=== PATIENT | female | born 1965 | race African-American/Black ===

== ENCOUNTER 2020-12-01 13:14 | Inpatient (IN) | payer OTHER ==
[~2020-12-01] VITALS: Ht 167.6 cm; Wt 66.7 kg
[2020-12-01 13:17] VITALS: BP 123/42
[2020-12-01 13:39] LABS: RBC 2.02 mil/uL (4.20-5.00); WBC 5.2 thou/uL (4.0-11.0)
[2020-12-01 13:42] LABS: MCH 29.9 pg (26.0-34.0); MCHC 35.2 g/dL (28.0-37.0); MCV 84.8 fL (80.0-100.0); RDW 15.1 % (10.5-14.5)
[2020-12-01 13:45] LABS: HEMATOCRIT 17.1 % (37.0-47.0)
[2020-12-01 13:48] LABS: ANION GAP 9 mmol/L (7-16); BUN 18 mg/dL (7-18); CHLORIDE 102 mmol/L (98-107); CO2 27 mmol/L (21-32); GLUCOSE 114 mg/dL (74-106); POTASSIUM 3.7 mmol/L (3.5-5.1); SODIUM 138 mmol/L (136-145)
[2020-12-01 13:58] LABS: ALBUMIN 2.9 g/dL (3.4-5.0); SGOT 15 U/L (15-37); SGPT 18 U/L (30-65); TOTAL BILIRUBIN 0.2 mg/dL (0.2-1.0); TOTAL PROTEIN 5.5 g/dL (6.4-8.2); TROPONIN-I <0.06 ng/mL (<0.06)
[2020-12-01 14:16] LABS: APTT 20.3 Seconds (24.5-32.8); D-DIMER 0.19 ug/mLFEU (0.19-0.50); INR 0.97; PROTIME 10.6 Seconds (10.5-12.1)
[2020-12-01 16:40] VITALS: BP 91/49
[2020-12-01 17:49] VITALS: BP 113/64; BP 99/43
--- NOTE | 2020-12-01 18:08 | NUR ---
PATIENT ADMITTED TO UNIT AT THIS TIME. SHE IS ALERT ORINETED X4. PLEASANT WITH CARES. RESPIRATIONS ARE EVEN NON LABORED. ANEMIC AND BLOOD INFUSING AT THIS TIME .
[2020-12-01 18:55] VITALS: BP 116/44
[2020-12-02 04:09] VITALS: BP 80/39
--- NOTE | 2020-12-02 05:12 | NUR ---
PROGRESS PT A/O X4, LUNGS CLEAR, VSS BP SLIGHT SOFT BUT PT DENIES DIZZINESS AT THIS TIME. 1 UNIT PRBC'S INFUSED ORDERED HGB REPEATED 1 HOUR AFTER AND UP TO 7.6. PROTONIX DRIP COMPLETED. TYLENOL GIVEN FOR HEADACHE AND BENEDRYL GIVEN SLEEP AIDE PT SLEPT REMAINDER OF SHIFT UNTIL AM VITALS DENIES PAIN AT THIS TIME, GI CONSULT PLANNED FOR THE DAY.
[2020-12-02 05:50] LABS: HEMATOCRIT 20.7 % (37.0-47.0); HEMOGLOBIN 7.3 gm/dL (12.0-15.0); MCH 30.4 pg (26.0-34.0); MCHC 35.2 g/dL (28.0-37.0); MCV 86.4 fL (80.0-100.0); RBC 2.4 mil/uL (4.20-5.00); RDW 15.4 % (10.5-14.5); WBC 4.6 thou/uL (4.0-11.0)
[2020-12-02 06:02] LABS: CALCIUM 8.1 mg/dL (8.5-10.1); CREATININE 0.8 mg/dL (0.6-1.0); POTASSIUM 3.6 mmol/L (3.5-5.1)
[2020-12-02 07:11] VITALS: BP 86/39
--- NOTE | 2020-12-02 08:46 | EKG ---
[place] [address] [facility] [place] [address] ELECTROCARDIOGRAM REPORT Name: ELIOT TAPIA Room #: 357-P ADM IN M.R.#: [id number] Admission: 12/01/20 Attend Phys: Gian Kilgore MD Discharge: Date of : 67 Report #: [id number] [facility] ED Test Date: 2020-12-01 Test Time: 13:20:05 Pat Name: ELIOT TAPIA Department: Room: 357 Gender: F Retail Department Manager: : 1965 Requested By: Cora Gordon Order Number: [id number] MD: Serge Borden Measurements Intervals [place] Rate: 95 P: 29 NH: 181 QRS: 45 QRSD: 79 T: 22 QT: 350 QTc: 440 Interpretive Statements Sinus rhythm Borderline T abnormalities Baseline wander in lead(s) V3,V5 No previous ECG available for comparison Electronically Signed On 12-02-2020 8:46:33 CDT by Serge Borden [email or web address] <ELECTRONICALLY SIGNED> By: Serge Borden MD, [facility] 12/02/20 0846 1320 1320 Serge Borden MD, FACC /EPI
--- NOTE | 2020-12-02 11:25 | NUR ---
ASSESSMENT: CM REVIEWED CHART AND SPOKE WITH PATIENT. PT IS ALERT AND ORIENTED X4. PT WAS ADMITTED GENERALIZED WEAKNESS AND HEMOGLOB OF 6.0. PATIENT WAS TRANSFUSED WITH ONE UNIT. GI CONSULT WAS PLACED AND PT IS TO GET AN EGD TODAY. HEMOGLOBIN IS NOW 7.3. PT RPEORTS THAT SHE LIVES IN AN APT ALONE. PT REPORTS HAVING ABOUT 10 STEPS WITH [employer] TO GET DOWN INTO HER APT. PT REPORTS SHE IS NORMALLY VERY INDEPENDENT WITH ADLS AND AMBULATION AND HAS NO DME. PT IS SHOWING PATIENT PAY BUT REPORTS HAVING INSURANCE THROUGH HER EMPLOYER [employer]. CM NOTIFIED UR RN. PT STATES SHE WILL CALL HER EMPLOYER AND TRY AND GET MORE INFO. PT STATES SHE HAS NO HX OF HH OR SNF. PT REPORTS SHE DOES NOT CURRENTLY HAVE A PCP AND REPORTS SHE NEVER GETS SICK AND HAS NOT HAD TO GET TREATMENT IN A LONG TIME. CM DISCUSSED ONCE SHE IS ABLE TO FIND OUT HER INSURANCE SHE CAN CONTACT THE NUMBER OF WHO IS IN NETWORK. CM ALSO PROVIDED PATIENT WITH HEALTH RESOURCE PACKET/SAFETY NET CLINICS AND FOLLOW UP LOCATIONS. PT REPORTS SHE HAS NO FURTHER NEEDS FROM CM AT THIS TIME. CM WILL CONTINUE TO FOLLOW TO ASSIST NEEDED.
[2020-12-02 12:12] VITALS: BP 94/52; BP 97/64; BP 99/46
[2020-12-02 15:30] VITALS: BP 90/65
--- NOTE | 2020-12-02 17:02 | NUR ---
ASSUMED PATIENT CARE AT 0700. A/O X4. NO N/V. NO BLEEDING BM. PATIENT RECEIVED 2ND UNIT RBC THAT FINISHED AT GI LAB. PATIENT BACK TO UNIT AT 1530. WILL HAVE COLONOSCOPY TOMORROW.
[2020-12-02 20:07] VITALS: BP 95/48
[2020-12-03 04:30] VITALS: BP 96/50
--- NOTE | 2020-12-03 05:05 | NUR ---
Completed bowel prep lats night and pt. stated last bm is clear. No bleeding noted. C/O headache , tylenol given with some relief.She also requested for sleep med , benadryl given with good result. No nausea or vomiting. Kept NPO for colonoscopy today.
[2020-12-03 06:09] LABS: HEMATOCRIT 27.5 % (37.0-47.0); MCH 31.4 pg (26.0-34.0); MCHC 36.1 g/dL (28.0-37.0); MCV 86.9 fL (80.0-100.0); RBC 3.17 mil/uL (4.20-5.00); RDW 15.7 % (10.5-14.5); WBC 3.7 thou/uL (4.0-11.0)
[2020-12-03 06:22] LABS: HEMOGLOBIN 9.9 gm/dL (12.0-15.0)
[2020-12-03 07:18] VITALS: BP 111/52
--- NOTE | 2020-12-03 13:18 | NUR ---
DISCHARGE NOTE: JESUS reviewed chart and spoke with nursing and attending physician. Pt had EGD yesterday and will have colonoscopy today. Pt may discharge home following GI procedure. JESUS met with pt at bedside to discuss discharge plan. Pt states she drove herself to the hospital and will plan to drive home when discharged. Pt reports she contacted her employer, who states that pt's insurance will not be active until January. Pt states she will pay or make payment plans regarding cost of hospitalization. SW notified [employer], that pt does not have active insurance. [employer] to screen pt for Medicaid. Plan is for pt to discharge home when medically stable. No SW discharge needs identified at this time. SW is available to assist should needs arise.
[2020-12-03] MEDS ORDERED: PROTONIX 20 MG20 M1 PO (15:49)
[2020-12-03 17:05] VITALS: BP 111/52
--- NOTE | 2020-12-03 17:30 | NUR ---
PATIENT COMPLETED COLONOSCOPY, SEE PHYSICIAN REPORTS. GI IS OK WITH DC TO HOME, VERIFIED THIS WITH ATTENDING PHYSICIAN. ORDERS TO DC TO HOME. PATIENT GIVEN DISCHARGE EDUCATION, IV REMOVED WITHOUT COMPLICATION, VSS, AND TELE DC'D. PATIENT WAS ABLE TO AMBULATE TO PRIVATE CAR AND WAS A/O X4 WITH NO C/O PAIN, SHORTNESS OF BREATH OR BLEEDING UPON DC.
--- NOTE | 2020-12-04 08:19 | P ---
[facility] [place] [address] [place] [address] PROCEDURE REPORT Name: ELIOT TAPIA Room #: 357-P [facility] IN M.R.#: [id number] Admission: 12/01/20 Attend Phys: Gian Kilgore MD Discharge: 12/03/20 Date of : 67 Report #: [id number] THIS REPORT FOR: cc: HAMIDA - No family physician/PCP FAM - No family physician/PCP Regan Brothers MD ~ DOC #: [id number] cc: MD Regan Pichardo MD DATE OF SERVICE: 12/03/2020 PROCEDURE PERFORMED: Colonoscopy with biopsies. HISTORY OF PRESENT ILLNESS: The patient is a 55-year-old female with recent melanotic type stools as well as some nausea and vomiting. Admit hemoglobin was 6.0. She has been transfused 2 units of packed cells. Hemoglobin now is 9.9. Stool was Hemoccult positive x1 on . Last colonoscopy was in 2005 reportedly negative. I performed an upper endoscopy on the patient yesterday, which was normal. There was no evidence of bleeding. Therefore, plan is for colonoscopy today. DESCRIPTION OF PROCEDURE: The risks and benefits of the procedure were explained to the patient, those risks including but not limited to bleeding, perforation and the risk of sedation. She understood these risks and gave informed consent. Sedation was given using propofol per anesthesia. Next, a digital rectal exam was initially performed, which was normal other than small external hemorrhoid. Next, using a standard Olympus colonoscope, the scope was placed in the patient's anus and advanced under direct vision to the cecum. The overall prep was good. The cecum and ileocecal valve were normal in appearance. Terminal ileum was intubated and normal in appearance. The ascending, transverse, and descending colon were normal. In the sigmoid colon, two 3 mm sessile polyps are noted, both removed with cold forceps, otherwise normal. The rectal mucosa was normal. On retroflexion, no abnormalities were noted. The scope was then withdrawn and the procedure terminated. The patient tolerated the procedure well. IMPRESSION: 1. Two small sigmoid colon polyps. 2. External hemorrhoid. 3. Otherwise, normal colonoscopy. There was no evidence of bleeding throughout the exam today. RECOMMENDATIONS: 1. Await biopsy results. 2. If polyps are hyperplastic, repeat in 10 years; if adenomatous polyp, repeat [address] [address] PROCEDURE REPORT Name: ELIOT TAPIA Room #: 357-P DIS IN M.R.#: [id number] Admission: 12/01/20 Attend Phys: Gian Kilgore MD Discharge: 12/03/20 Date of : 67 Report #: [id number] in 5 years. 3. Due to the patient's anemia, heme-positive stool, no stigmata of bleeding were noted on EGD or colonoscopy today, I would recommend proceeding with an M2 capsule of her small bowel as an outpatient in the near future. Thank you for allowing me to participate in her care. Regan Brothers MD [facility] <ELECTRONICALLY SIGNED> By: Regan Brothers MD 12/04/20 0819 1206 2340 Regan Brothers MD /nt
--- NOTE | 2020-12-04 08:19 | P ---
[facility] [place] [place] [address] PROCEDURE REPORT Name: KARMEN TAPIALINE Room #: 357-P [facility] IN M.R.#: [id number] Admission: 12/01/20 Attend Phys: Gian Kilgore MD Discharge: 12/03/20 Date of : 67 Report #: [id number] THIS REPORT FOR: cc: FAM - No family physician/PCP FAM - No family physician/PCP Regan Brothers MD ~ DOC #: [id number] Regan Brothers MD ADDENDUM IMPRESSION: External hemorrhoid versus condyloma versus skin tag. I discussed this finding with the patient. I would recommend her seeing Dr. Brittani Toth with Colorectal Surgery for possible further treatment or excision at some point as this is bothersome to the patient at times. Regan Brothers MD [facility] <ELECTRONICALLY SIGNED> By: Regan Brothers MD 12/04/20 0819 1211 2329 Regan Brothers MD /nt
--- NOTE | 2020-12-04 08:19 | P ---
[facility] [place] [address] PROCEDURE REPORT Name: ELIOT TAPIA Room #: 357-[facility] IN M.R.#: [id number] Admission: 12/01/20 Attend Phys: Gian Kilgore MD Discharge: 12/03/20 Date of : 67 Report #: [id number] THIS REPORT FOR: cc: HAMIDA - No family physician/PCP FAM - No family physician/PCP Regan Brothers MD ~ DOC #: [id number] cc: MD Regan Pichardo MD DATE OF SERVICE: 12/01/2020 PROCEDURE PERFORMED: Upper endoscopy. HISTORY OF PRESENT ILLNESS: The patient is a 55-year-old female who has recent chest discomfort, anemia, feeling weak in general, intermittent nausea and vomiting at times. No acid reflux, reported dark stools for the last 2-3 days. Admit hemoglobin was 6.0. She has had a previous hysterectomy. She underwent a colonoscopy in 2005 apparently prior to a partial hysterectomy for ovarian tumor. Colonoscopy at that time was reportedly normal. She has been taking Aleve on a regular basis. Plan is for EGD. DESCRIPTION OF PROCEDURE: The risks and benefits of the procedure were explained to the patient, those risks including but not limited to bleeding, perforation and the risk of sedation. She understood these risks and gave informed consent. Sedation was given using propofol per anesthesia. Next, using a standard Olympus upper endoscope, the scope was placed in the patient's mouth and advanced under direct vision through the esophagus, stomach and into the second portion of the duodenum. Esophagus was normal throughout. The GE junction was normal. Overall, the gastric mucosa was normal. No evidence of ulcerations or erosions. No evidence of bleeding throughout the exam today. The pylorus was normal and patent. The duodenal bulb, first and second portion were all normal. At this point, the scope was then withdrawn and the procedure terminated. The patient tolerated the procedure well. IMPRESSION: Normal upper endoscopy. RECOMMENDATIONS: We will discuss options with the patient, would recommend proceeding with a colonoscopy next for further evaluation of anemia and heme-positive stools. Thank you for allowing me to participate in her care. Regan Brothers MD [facility]/[address] [address] PROCEDURE REPORT Name: ELIOT TAPIA Room #: 357-P [facility] IN ..#: [id number] Admission: 12/01/20 Attend Phys: Gian Kilgore MD Discharge: 12/03/20 Date of : 67 Report #: [id number] <ELECTRONICALLY SIGNED> By: Regan Brothers MD 12/04/20 0819 1410 0112 Regan Brothers MD /nt
== END 2020-12-03 17:20 | disposition home or self-care (01) | DRG 378 ==
LOC: ER 13:14 → EROBS 14:46 → 3W 16:33
PROVIDERS: Nurse Practitioner Family; ADMIT Hospitalist; ATTEND Hospitalist
PROC: 0DJ08ZZ Inspection of Upper Intestinal Tract, Via Natural or Artificial Opening Endoscopic (ICD-10-PCS; principal; 2020-12-01)
PROC: 30233N1 Transfusion of Nonautologous Red Blood Cells into Peripheral Vein, Percutaneous Approach (ICD-10-PCS; principal; 2020-12-01)
PROC: 0DBN8ZZ Excision of Sigmoid Colon, Via Natural or Artificial Opening Endoscopic (ICD-10-PCS; 2020-12-03)
DX: K92.2 Gastrointestinal hemorrhage, unspecified (principal); D62 Acute posthemorrhagic anemia; K64.4 Residual hemorrhoidal skin tags; Z20.822 Contact with and (suspected) exposure to COVID-19; D12.5 Benign neoplasm of sigmoid colon; Z90.711 Acquired absence of uterus with remaining cervical stump
CPT/HCPCS: 10879; 62110; 62900; 70005